=== PATIENT | female | born 1980 | race Caucasian/White ===

== ENCOUNTER 2024-05-28 01:17 | Inpatient (IN) | payer BC ==
[2024-05-28 01:49] VITALS: BMI 32.5
[2024-05-28] MEDS: hydrALAZINE 20 MG/ML VIAL ONE (01:50)
[2024-05-28] MEDS ORDERED: Promethazine HCl 25 MG/ML VIAL IM PRN ×2 (01:51→02:09)
[2024-05-28] MEDS ORDERED: hydrALAZINE 20 MG/ML VIAL SLOW IVP PRN ×3 (01:51→02:09)
[2024-05-28] MEDS ORDERED: fentaNYL 50 mcg/mL 1 mL Vial SLOW IVP PRN (01:51)
[2024-05-28] MEDS ORDERED: Ondansetron PF 4 MG/2 ML Vial IVP PRN ×2 (01:51→02:09)
[2024-05-28] MEDS: fentaNYL 50 mcg/mL 1 mL Vial ONE ×2 (01:54→06:09)
[2024-05-28] MEDS ORDERED: Oxytocin 30 units/NS 500 ML 500 ML IV SCH ×2 (02:00→02:15)
[2024-05-28] MEDS: Labetalol HCl 100 MG/20 ML VIAL ONE (02:07)
[2024-05-28] MEDS ORDERED: Calcium Gluc 4.6 MEQ/10 ML (100 MG/ML) SLOW IVP PRN (02:11)
[2024-05-28] MEDS ORDERED: Labetalol HCl 100 MG/20 ML VIAL SLOW IVP PRN ×2 (02:11)
[2024-05-28] MEDS ORDERED: Lorazepam 2 MG/ML VIAL SLOW IVP PRN (02:11)
[2024-05-28 02:22] LABS: Bilirubin Neg (Negative); Blood, Urine 150 (Negative); Clarity Clear (Clear); Glucose, Urine (Dipstick) Normal (Negative); Ketone, Urine Negative (Negative); Leukocyte Negative (Negative); Nitrite Negative (Negative); Protein, Urine (Dipstick) Negative (Neg-Trace); Urobilinogen Normal mg/dL (Less than 2)
[2024-05-28] MEDS: Magnesium Sulfate 20 gm/500 ml 20 GM/500 ML BAG ONE (02:28)
[2024-05-28] MEDS ORDERED: Misoprostol 200 MCG TAB ONE (02:36)
[2024-05-28] MEDS ORDERED: Tranexamic Acid 1,000 MG/10 ML VIAL ONE (02:36)
[2024-05-28] MEDS ORDERED: Carboprost 250 MCG/ML AMP ONE ×2 (02:36→03:47)
[2024-05-28] MEDS ORDERED: Methylergonovine 0.2 MG/ML VIAL ONE (02:36)
[2024-05-28 02:44] LABS: Hematocrit 33.2 % (34.9-44.5); Hemoglobin 11.9 g/dL (12.0-15.5); Mean Corpuscular HGB CONC 35.8 g/dL (32.0-36.0); Mean Corpuscular Hemoglobin 31.1 pg (27.0-33.0); Mean Corpuscular Volume 86.7 fL (81.6-98.3); Mean Platelet Volume 10.4 fL (7.4-10.4); Platelet Count 231 10x3/uL (150-450); RBC Distribution Width 12.5 % (11.5-14.5); Red Blood Cell (RBC) Count 3.83 10x6/uL (3.90-5.03); White Blood Cell (WBC) Count 16.8 10x3/uL (3.5-10.5)
[2024-05-28 02:48] LABS: Syphilis Antibody Nonreactive (Nonreactive); Syphilis Antibody Index 0.05 S/CO (<1.00 Non-Reactive)
[2024-05-28 02:50] LABS: HBsAg Index 0.18 S/CO (0-0.99); Hep B Surf Ag - L&D Non-Reactive S/CO (NonReactive)
[2024-05-28 02:57] LABS: ALT (SGPT) 63 U/L (8-55); AST (SGOT) 48 U/L (5-34); Albumin 2.7 g/dL (3.5-5.0); Alkaline Phosphatase 113 U/L (40-110); Anion Gap 13 mmol/L (10-20); BUN (Urea Nitrogen) 9 mg/dL (7.0-18.7); Bilirubin, Total 0.4 mg/dL (0.2-1.2); Calc. Creatinine Clearance 158 mL/min (70-130); Calcium 9.2 mg/dL (7.8-10.44); Carbon Dioxide 15 mmol/L (22-29); Chloride 109 mmol/L (98-107); Estimated GFR 114; Glucose 132 mg/dL (70-105); Potassium 3.7 mmol/L (3.5-5.1); Protein, Total 5.7 g/dL (6.0-8.3); Sodium 133 mmol/L (136-145)
[2024-05-28] MEDS ORDERED: Ketorolac Tromethamine 30 MG (1 mL) VIAL ONE (02:59)
[2024-05-28] MEDS ORDERED: fentaNYL 50 mcg/mL 1 mL Vial ONE ×2 (02:59→04:15)
[2024-05-28] MEDS ORDERED: Lidocaine 2% PF 5 ML VIAL ONE (02:59)
[2024-05-28] MEDS ORDERED: PROPOFOL 20 ML ONE (02:59)
[2024-05-28] MEDS ORDERED: SUCCINYLCHOLINE/SOD CL,ISO/PF 200 MG/10 ML SYRINGE FS ONE (03:00)
[2024-05-28] MEDS ORDERED: Dexamethasone 4 mg/ml Vial ONE (03:37)
[2024-05-28] MEDS ORDERED: Ondansetron PF 4 MG/2 ML Vial ONE (03:37)
[2024-05-28] MEDS ORDERED: CEFAZOLIN 1 GM VIAL ONE (03:38)
[2024-05-28] MEDS ORDERED: Oxytocin 10 UNITS/ML VIAL ONE ×2 (03:53)
[2024-05-28 03:56] LABS: Bacteria/HPF None Seen HPF (None Seen); RBC/HPF 0-3 HPF (0-3); Squamous Epithelial 0-3 HPF (0-3); Transitional Epithelial 0-3 HPF (None Seen); WBC/HPF None Seen HPF (0-3)
[2024-05-28] MEDS ORDERED: HYDROcodone/Acetaminophen 5/325 mg Tablet PO PRN (04:51)
[2024-05-28 07:33] LABS: #Basophils 0.04 10x3/uL (0.0-0.2); #Eosinophils 0.04 10x3/uL (0.0-0.5); #Neutrophils 18.13 10x3/uL (1.5-8.4); %Basophils 0.2 % (0.0-2.0); %Eosinophils 0.2 % (0.0-6.0); %Lymphocytes 5.4 % (18.0-47.0); %Monocytes 3.5 % (0.0-10.0); %Neutrophils 89.4 % (40.0-75.0); Hematocrit 33.2 % (34.9-44.5); Hemoglobin 11.4 g/dL (12.0-15.5); Mean Corpuscular HGB CONC 34.3 g/dL (32.0-36.0); Mean Corpuscular Hemoglobin 30.2 pg (27.0-33.0); Mean Corpuscular Volume 88.1 fL (81.6-98.3); Platelet Count 193 10x3/uL (150-450); RBC Distribution Width 12.6 % (11.5-14.5); Red Blood Cell (RBC) Count 3.77 10x6/uL (3.90-5.03); White Blood Cell (WBC) Count 20.3 10x3/uL (3.5-10.5)
[2024-05-28 07:54] LABS: ALT (SGPT) 63 U/L (8-55); AST (SGOT) 72 U/L (5-34); Albumin 2.7 g/dL (3.5-5.0); Alkaline Phosphatase 108 U/L (40-110); Anion Gap 14 mmol/L (10-20); BUN (Urea Nitrogen) 9 mg/dL (7.0-18.7); Bilirubin, Total 0.2 mg/dL (0.2-1.2); Calc. Creatinine Clearance 140 mL/min (70-130); Calcium 8.4 mg/dL (7.8-10.44); Carbon Dioxide 16 mmol/L (22-29); Chloride 108 mmol/L (98-107); Estimated GFR 109; Globulin 3.2 g/dL (2.4-3.5); Glucose 148 mg/dL (70-105); Magnesium 3.9 mg/dL (1.6-2.6); Potassium 4.3 mmol/L (3.5-5.1); Protein, Total 5.9 g/dL (6.0-8.3); Sodium 134 mmol/L (136-145)
[2024-05-28] MEDS: Benzocaine-Menthol 82.5 ML CAN TOP PRN (08:10)
[2024-05-28] MEDS: Piperacillin/Tazobactam 3.375 GM in Sodium Chloride 0.9% 100 ML IVPB SCH ×3 (08:10→16:14)
[2024-05-28] MEDS: Labetalol HCl 100 MG/20 ML VIAL SLOW IVP PRN (08:33)
[2024-05-28] MEDS: NIFEdipine XL 30 MG ER.TAB PO SCH (08:54)
[2024-05-28] MEDS: Ibuprofen 200 MG TAB PO PRN (12:11)
[2024-05-28] MEDS: Lactated Ringer's 1,000 ML IV SCH (15:59)
[2024-05-28] MEDS: fentaNYL 50 mcg/mL 1 mL Vial SLOW IVP SCH (16:00)
[2024-05-28] MEDS: Magnesium Sulfate 20 gm/500 ml 20 GM/500 ML BAG IVPB SCH (22:50)
[2024-05-29] MEDS: Melatonin 3 MG TAB PO SCH (02:43)
[2024-05-29] MEDS: Acetaminophen 500 MG TAB PO SCH (02:43)
[2024-05-29 05:11] LABS: #Basophils 0.05 10x3/uL (0.0-0.2); #Eosinophils 0.12 10x3/uL (0.0-0.5); #Monocytes 0.67 10x3/uL (0.0-1.1); %Basophils 0.3 % (0.0-2.0); %Eosinophils 0.8 % (0.0-6.0); %Lymphocytes 14.6 % (18.0-47.0); %Monocytes 4.7 % (0.0-10.0); %Neutrophils 78.5 % (40.0-75.0); Hematocrit 24.8 % (34.9-44.5); Hemoglobin 8.7 g/dL (12.0-15.5); Mean Corpuscular HGB CONC 35.1 g/dL (32.0-36.0); Mean Corpuscular Hemoglobin 31.3 pg (27.0-33.0); Mean Corpuscular Volume 89.2 fL (81.6-98.3); Mean Platelet Volume 10.3 fL (7.4-10.4); Platelet Count 194 10x3/uL (150-450); RBC Distribution Width 13.2 % (11.5-14.5); Red Blood Cell (RBC) Count 2.78 10x6/uL (3.90-5.03); White Blood Cell (WBC) Count 14.4 10x3/uL (3.5-10.5)
[2024-05-29 05:28] LABS: ALT (SGPT) 44 U/L (8-55); AST (SGOT) 39 U/L (5-34); Albumin 2.3 g/dL (3.5-5.0); Alkaline Phosphatase 77 U/L (40-110); Anion Gap 12 mmol/L (10-20); BUN (Urea Nitrogen) 7 mg/dL (7.0-18.7); Bilirubin, Total 0.2 mg/dL (0.2-1.2); Calc. Creatinine Clearance 163 mL/min (70-130); Calcium 6.5 mg/dL (7.8-10.44); Carbon Dioxide 19 mmol/L (22-29); Chloride 111 mmol/L (98-107); Critical Call Chemistry ERS.JAN @0528; Estimated GFR 114; Globulin 2.4 g/dL (2.4-3.5); Glucose 116 mg/dL (70-105); Potassium 3.4 mmol/L (3.5-5.1); Protein, Total 4.7 g/dL (6.0-8.3); Sodium 139 mmol/L (136-145)
[2024-05-30] MEDS: NIFEdipine 10 MG CAP PO SCH (01:29)
[2024-05-30] MEDS ORDERED: Labetalol HCl 100 MG/20 ML VIAL SLOW IVP PRN (01:31)
[2024-05-30] MEDS ORDERED: NIFEdipine 10 MG CAP PO PRN ×2 (01:31)
[2024-05-30] MEDS: NIFEdipine XL 60 MG ER.TAB PO SCH (08:46)
[2024-05-30] MEDS: Potassium Chloride 20 MEQ TAB PO SCH (08:47)
[2024-05-30] MEDS: NIFEdipine XL 30 MG ER.TAB PO SCH (16:54)
[2024-05-30] MEDS: NIFEdipine 10 MG CAP ONE (17:09)
[2024-05-31] MEDS: NIFEdipine XL 90 MG ER.TAB PO SCH (08:25)
[2024-05-31] MEDS: Labetalol HCl 200 MG TAB PO SCH ×2 (12:17→21:19)
[2024-05-31 12:53] LABS: #Basophils 0.08 10x3/uL (0.0-0.2); #Eosinophils 0.28 10x3/uL (0.0-0.5); #Neutrophils 6.95 10x3/uL (1.5-8.4); %Basophils 0.8 % (0.0-2.0); %Eosinophils 2.9 % (0.0-6.0); %Lymphocytes 15.3 % (18.0-47.0); %Monocytes 4.2 % (0.0-10.0); %Neutrophils 73.1 % (40.0-75.0); Hematocrit 31.1 % (34.9-44.5); Hemoglobin 10.3 g/dL (12.0-15.5); Mean Corpuscular HGB CONC 33.1 g/dL (32.0-36.0); Mean Corpuscular Hemoglobin 30.3 pg (27.0-33.0); Mean Corpuscular Volume 91.5 fL (81.6-98.3); Mean Platelet Volume 9.8 fL (7.4-10.4); Platelet Count 215 10x3/uL (150-450); RBC Distribution Width 12.8 % (11.5-14.5); White Blood Cell (WBC) Count 9.5 10x3/uL (3.5-10.5)
[2024-05-31 13:07] LABS: ALT (SGPT) 442 U/L (8-55); AST (SGOT) 230 U/L (5-34); Albumin 2.9 g/dL (3.5-5.0); Alkaline Phosphatase 98 U/L (40-110); Anion Gap 13 mmol/L (10-20); BUN (Urea Nitrogen) 17 mg/dL (7.0-18.7); Bilirubin, Total 0.3 mg/dL (0.2-1.2); Calc. Creatinine Clearance 158 mL/min (70-130); Calcium 9.8 mg/dL (7.8-10.44); Carbon Dioxide 23 mmol/L (22-29); Chloride 105 mmol/L (98-107); Estimated GFR 114; Globulin 3.6 g/dL (2.4-3.5); Glucose 103 mg/dL (70-105); Protein, Total 6.5 g/dL (6.0-8.3); Sodium 137 mmol/L (136-145)
[2024-06-01] MEDS: Acetaminophen 500 MG TAB PO PRN (04:50)
[2024-06-01 07:43] VITALS: BP 145/76; TEMP 98.2
== END 2024-06-01 09:50 | disposition home or self-care (01) | DRG 769 ==
LOC: CSHLD 01:17 → CSHPP 05-29 18:55
PROVIDERS: ADMIT Obstetrics & Gynecology; ATTEND Obstetrics & Gynecology
PROC: 10D17ZZ Extraction of Products of Conception, Retained, Via Natural or Artificial Opening (ICD-10-PCS; principal; 2024-05-28)
PROC: 0HQ9XZZ Repair Perineum Skin, External Approach (ICD-10-PCS; 2024-05-28)
DX: O73.0 Retained placenta without hemorrhage (principal); O13.5 Gestational [pregnancy-induced] hypertension without significant proteinuria, complicating the puerperium; O90.81 Anemia of the puerperium; O99.285 Endocrine, nutritional and metabolic diseases complicating the puerperium; E87.6 Hypokalemia; Z87.59 Personal history of other complications of pregnancy, childbirth and the puerperium; O9A.23 Injury, poisoning and certain other consequences of external causes complicating the puerperium; S31.41XA Laceration without foreign body of vagina and vulva, initial encounter; X58.XXXA Exposure to other specified factors, initial encounter
CPT/HCPCS: 36415; 51702; 80053; 81001; 82570; 83735; 84156; 85025; 85027; 86780; 86850; 86900; 86901; 87340; 88307; 99285; J0360; J0690; J1100; J1885; J2210; J2405; J2543; J2590; J2704; J3010; J3475; J3490